=== PATIENT | female | born 1960 | race Two or more races ===

== ENCOUNTER 2020-02-01 18:18 | Emergency (ER) | payer OTHER, MEDICAID ==
[~2020-02-01] VITALS: Ht 162.6 cm; Wt 52.2 kg
--- NOTE | 2020-02-01 19:09 | Diagnostic Imaging Report ---
EXAM: CT Head Without Intravenous Contrast CLINICAL HISTORY: TRAUMA TECHNIQUE: Axial computed tomography images of the head/brain without intravenous contrast. CTDI is 68.7 mGy and DLP is 1344.3 mGy-cm. One or more of the following dose reduction techniques were used: automated exposure control, adjustment of the mA and/or kV according to patient size, use of iterative reconstruction technique. COMPARISON: No relevant prior studies available. FINDINGS: Brain: No acute intracranial hemorrhage, large hypodensity, or significant mass effect. Nonspecific areas of hypoattenuation in the periventricular white matter likely represent the sequela of chronic small vessel ischemic disease. Ventricles: Ventricular and sulcal prominence commensurate with the patient's age. Bones/joints: No acute abnormality. Soft tissues: Right scalp and pre-frontal hematomas. Sinuses: Mild mucosal thickening. Mastoid air cells: No significant abnormality. IMPRESSION: No acute intracranial hemorrhage or calvarial fracture.
--- NOTE | 2020-02-01 19:23 | Diagnostic Imaging Report ---
EXAM: CT Cervical Spine Without Intravenous Contrast CLINICAL HISTORY: TRAUMA TECHNIQUE: Axial computed tomography images of the cervical spine without intravenous contrast. CTDI is 20.2 mGy and DLP is 490.8 mGy-cm. One or more of the following dose reduction techniques were used: automated exposure control, adjustment of the mA and/or kV according to patient size, use of iterative reconstruction technique. COMPARISON: No relevant prior studies available. FINDINGS: Vertebrae: No acute fracture or malalignment. Minimal reversal of the normal cervical lordosis. Discs/spinal canal/neural foramina: Mild degenerative changes. No significant osseous spinal stenosis. Soft tissues: No significant abnormality. IMPRESSION: No acute fracture or malalignment.
--- NOTE | 2020-02-01 19:25 | Diagnostic Imaging Report ---
EXAM: CT Thoracic Spine Without Intravenous Contrast CLINICAL HISTORY: TRAUMA TECHNIQUE: Axial computed tomography images of the thoracic spine without intravenous contrast. CTDI is 6 mGy and DLP is 212.1 mGy-cm. One or more of the following dose reduction techniques were used: automated exposure control, adjustment of the mA and/or kV according to patient size, use of iterative reconstruction technique. COMPARISON: No relevant prior studies available. FINDINGS: Vertebrae: No acute fracture or malalignment. Indeterminate small sclerotic focus in the anterior inferior T11 vertebral body. Discs/spinal canal/neural foramina: No acute findings. No spinal canal stenosis. Soft tissues: No significant abnormality. IMPRESSION: No acute fracture or malalignment.
--- NOTE | 2020-02-01 19:34 | Diagnostic Imaging Report ---
EXAM: CT Maxillofacial Without Intravenous Contrast CLINICAL HISTORY: TRAUMA TECHNIQUE: Axial computed tomography images of the face without intravenous contrast. CTDI is 15.3 mGy and DLP is 352.2 mGy-cm. One or more of the following dose reduction techniques were used: automated exposure control, adjustment of the mA and/or kV according to patient size, use of iterative reconstruction technique. COMPARISON: No relevant prior studies available. FINDINGS: Bones/joints: No acute fracture or malalignment. Soft tissues: Right facial soft tissue hematoma. Orbits: No significant abnormality. Sinuses: Mild mucosal thickening. IMPRESSION: No acute facial fractures.
--- NOTE | 2020-02-01 19:41 | Diagnostic Imaging Report ---
EXAM: CT Lumbar Spine Without Intravenous Contrast CLINICAL HISTORY: TRAUMA TECHNIQUE: Axial computed tomography images of the lumbar spine without intravenous contrast. CTDI is 6.6 mGy and DLP is 206 mGy-cm. One or more of the following dose reduction techniques were used: automated exposure control, adjustment of the mA and/or kV according to patient size, use of iterative reconstruction technique. COMPARISON: No relevant prior studies available. FINDINGS: Vertebrae: Fractures of the left transverse processes of L2--L4. No significant vertebral body height loss. Alignment is maintained. Sacrum/coccyx: Lumbarized station of S1. Discs/spinal canal/neural foramina: Mild degenerative changes. Soft tissues: No significant abnormality. Reproductive: Indeterminate incompletely imaged complex 5 cm multiseptate cystic structure in the left pelvis is favored to be adnexal. IMPRESSION: Fractures of the left transverse processes of L2--L4. Indeterminate 5 cm complex left adnexal cystic structure can be further characterized with pelvic ultrasound, as clinically indicated.
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
[2020-02-01] MEDS ORDERED: NORCO 5-325 TA1 EAC1 ORAL (20:21)
[2020-02-01] MEDS ORDERED: IBUPROFEN600 M1 ORAL (20:21)
[2020-02-01] MEDS ORDERED: LIDODERM700 M1 TOPIC (20:21)
[2020-02-01 20:30] VITALS: BP 128/71
== END 2020-02-01 20:30 | disposition home or self-care (01) ==
LOC: EDBD 18:18 → EMR 20:15
DX: S32.028A Other fracture of second lumbar vertebra, initial encounter for closed fracture (principal); S32.038A Other fracture of third lumbar vertebra, initial encounter for closed fracture; S32.048A Other fracture of fourth lumbar vertebra, initial encounter for closed fracture; S00.83XA Contusion of other part of head, initial encounter; Y04.8XXA Assault by other bodily force, initial encounter; Y92.9 Unspecified place or not applicable
CPT/HCPCS: 70450; 70486; 72125; 72128; 72131; 93005; 99284; J2405

== ENCOUNTER 2020-08-06 09:56 | Emergency (ER) | payer OTHER, MEDICAID ==
[~2020-08-06] VITALS: Ht 152.4 cm; Wt 61.2 kg
[~2020-08-06 09:56] MED LIST: IBUPROFEN600 M1 ORAL; LIDODERM700 M1 TOPIC; NORCO 5-325 TA1 EAC1 ORAL
--- NOTE | 2020-08-06 10:30 | NUR ---
laceration to right hand has dressing on no bleeding at this time
[2020-08-06] MEDS ORDERED: Tetanus/Diptheria/Pertussis IM ONE (11:15)
--- NOTE | 2020-08-06 11:35 | NUR ---
sutures to laceration done by dr mae dressing applied splint applied
[2020-08-06] MEDS ORDERED: Bacitracin Oint UD TOPIC ONE (11:45)
[2020-08-06] MEDS ORDERED: CEPHALEXIN500 MG ORAL (11:54)
[2020-08-06] MEDS ORDERED: ACETAMINOPHEN-1 EAC1 ORAL (11:54)
[2020-08-06] MEDS ORDERED: BACITRACIN15 GM TOPIC (11:54)
[2020-08-06 11:59] VITALS: BP 133/60
[2020-08-06 12:01] VITALS: BP 135/80
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
== END 2020-08-06 12:05 | disposition home or self-care (01) ==
LOC: EMR 10:35
DX: S61.411A Laceration without foreign body of right hand, initial encounter (principal); S61.511A Laceration without foreign body of right wrist, initial encounter; X99.1XXA Assault by knife, initial encounter; Y92.9 Unspecified place or not applicable; Z23 Encounter for immunization
CPT/HCPCS: 90471; 90715; 99282